=== PATIENT | female | born 1965 | race Hispanic/Latino ===

== ENCOUNTER 2020-06-24 07:58 | Day surgery (SDC) | payer OTHER ==
--- OUTSIDE RECORDS SUMMARY | 2020-06-24 08:02 | XMS REPORT | Continuity of Care Document ---
:1965 Author Organization [facility] t Address [address] [place] [address] Dr. [address] [place] [address] Care Team Providers Name Role Phone Unavailable Unavailable Unavailable Problems This patient has no known problems. Allergies, Adverse Reactions, Alerts This patient has no known allergies or adverse reactions. Medications This patient has no known medications. Procedures This patient has no known procedures. Encounters Start End Encounter Admission Attending Care Care Encounter Source Date/Time Date/Time Type Type Clinicians Facility Department ID 2020-05-25 2020-05-25 Outpatient [facility] [id number] [facility] 00:00:00 00:00:00 Alaina Edmondson ent Clinics Results This patient has no known results.
--- OUTSIDE RECORDS SUMMARY | 2020-06-24 08:02 | XMS REPORT ---
:1965 Author Organization [facility] Address [address] Galvan, Chris. 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 274760540 ALLERGIES No Known Allergies ENCOUNTERS from 1965 to 2020-05-25 Encounter Location Date Provider Diagnosis [place] [address] [place] May, Peewee Ayala HTN (hype rtension), Drive [address], [facility] [address] ; [place] [address] hernia without obstruction or gangrene K43.9 ; Mixed hyperlipidemia E78.2 ; Atrophy of vagi na N95.2 ; Morbid (sever e) obesity due to excess calories E66.01 ; GERD without esophag itis K21.9 ; Body ma ss index [BMI]40.0-44.9, adult Z68.41 and Rect us diastasis M62.0 8 IMMUNIZATIONS No Information SOCIAL HISTORY Tobacco Use: Social History Observation Description Date Details (start date - stop date) Former Smoker Sex Assigned At : Social History Observation Description Sex Assigned At Unknown PHQ9 Question Answer Notes Little interest or pleasure in doing things Several days Feeling down, depressed, or hopeless Several days Trouble falling or staying asleep or sleeping too much Sever al days Feeling tired or having little energy Not at all Poor appetite or overeating Not at all Feeling bad about yourself, or that you are a failure, or No t at all have let yourself or your family down Trouble concentrating on things, such as reading the Not at all newspaper or watching television Moving or speaking so slowly that other people could have No t at all noticed; or the opposite, being so fidgety or restless that you have been moving around a lot more than usual Total Score 3 Interpretation Minimal Depression Thoughts that you would be better off or of hurting Not at all yourself in some way Alcohol Screen Question Answer Notes Did you have a drink containing alcohol in the past year? No Points 0 Interpretation Negative Tobacco Use/Smoking Question Answer Notes Are you a former smoker REASON FOR REFERRAL No Information VITAL SIGNS Height 56 in May, Weight 194.8 lbs May, Temperature 97.2 degrees Fahrenheit May, BMI 43.67 kg/m2 May, Oximetry 97 % May, Respiratory Rate 17 /min May, Blood pressure systolic 138 mm Hg May, Blood pressure diastolic 70 mm Hg May, MEDICATIONS Medication SIG (Take, Route, Frequency, Start Date End Date Status Duration) Elderberry Active Pravastatin Sodium 40 MG 1 tablet Orally Once a day for Active 90 days Pantoprazole Sodium 40 MG 1 tablet Orally Once a day for Active 90 days Irbesartan 300 MG 1 tablet Orally Once a day for Active 90 days Equate Active Diltiazem HCl 90 MG 1 tablet Orally Twice a day for Active 90 days PROCEDURES No Information RESULTS No Results REASON FOR VISIT Nwpt est. care MEDICAL (GENERAL) HISTORY Type Description Date Surgical History Full hip replacement-Arthritis 2017 Surgical History C sections 1989,1985,1982 Goals Section No Information Health Concerns No Information MEDICAL EQUIPMENT No Information MENTAL STATUS No Information FUNCTIONAL STATUS No Information ASSESSMENTS Encounter Date Diagnosis Notes May, Mixed hyperlipidemia (ICD-10 - E78.2) May, Rectus diastasis (ICD-10 - M62.08) May, Ventral hernia without obstruction or ga ngrene (ICD-10 - K43.9) May, Body mass index [BMI]40.0-44.9, adult (I CD-10 - Z68.41) May, Atrophy of vagina (ICD-10 - N95.2) May, HTN (hypertension), benign (ICD-10 - I10 ) May, GERD without esophagitis (ICD-10 - K21.9 ) May, Morbid (severe) obesity due to excess ca lories (ICD-10 - E66.01) PLAN OF TREATMENT Medication Medication Name Sig Start Date Stop Date Diltiazem HCl 90 MG 1 tablet Orally Twice a day for 90 days Irbesartan 300 MG 1 tablet Orally Once a day for 90 days Pravastatin Sodium 40 MG 1 tablet Orally Once a day for 90 days Pantoprazole Sodium 40 MG 1 tablet Orally Once a day for 90 days Treatment Notes Assessment Notes Clinical Notes HTN (hypertension), benign Continue current regimen. Refill given. Encouraged to monitor at home and bring log. Side effect panel discussed., DASH Diet discussed. Instructed to measure BP at home and bring in log to f/u appt. Instructions and logs given. Education given. HTN Education This is a condition that puts at risk for heart attack, stroke, and kidney disease. Lifestyle modification, low fat/low salt diet, exercise, low alcohol intake and medication is utilized to help control your BP. Untreated HTN increases the strain on the heart and arteries, eventually causing organ damage.Normal BP is less than 140/90. High BP is greater than 140/90. If your BP is not controlled, call your doctor. Medication may need to be adjusted and/or added. Compliance with medication is vital. If you have chest pain, shortness of breath, severe nausea/vomiting, fatigue, and other symptoms, you will need to contact your doctor or go to the ER immediately to address. Ventral hernia without obstruction Discussed differential di agnosis or gangrene with patient. Education given. Referral to general surgeon for further evaluation and management. Imaging may be required. Concern for hernia versus rectus diastases or both. Defer to general surgeon. Avoid any exacerbating activity. Mixed hyperlipidemia . Continue current regimen. Education given. Side effect panel discussed, Hyperlipidemia Education: Hyperlipidemia refers to increased levels of lipids(fats) in the blood, including cholesterol and triglycerides. This can significantly increase your risk of developing coronary artery disease and peripheral artery disease. This can cause chest pain, heart attack, stroke, and fatigue. Treatment is recommended to decrease your risk. Treatment includes: lifestyle modification, low salt/low fat diet, exercise, tobacco cessation, low alcohol intake and sometimes medication. Blood tests (TC,TG, HDL, LDL) are utilized to determine treatment regimens. TC(Total cholesterol) should be below 200. TG(Total Triglycerides) should be below 150. HDL(Good cholesterol) should be above 40. LDL(Bad Cholesterol) should be below 130(if you have one risk factor) or less than 100( if you have more than one risk factor or have DM/CAD/PVD). Compliance with medication and treatment is vital. If you have questions, talk to your doctor. Atrophy of vagina . Managed by gynecology. Encourage on being compliant with medication. GERD without esophagitis . Discussed long-term impact of PPI usage. Education given. , We have discussed the pathophysiology of reflux disease and we discussed lifestyle modifications to avoid reflux that include elevation head of the bed, avoid alcohol, avoid caffeine, avoid maintenance, avoid tight clothing, avoid eating within 3-4 hours before bedtime, and avoiding smoking. Body mass index [BMI]40.0-44.9, Actively listened. Support rojelio hammonds. adult Counseling given. Education given. Utilized the 5-A''s approach to increase patient motivation and behavioral change. ASK: Patient expressed desire/readiness to change and permission was obtained to discuss. ASSESS: BMI class discussed. In addition, patient''s barrier to weight loss and identified drivers and complications. ADVISE: Discussed benefits of modest weight loss and long-term strategy as well. Educated on risks and complications of obesity on health. Treatment options were discussed including but not limited to non-surgical (medications, gym, diet/exercise) and surgical options. AGREE: Realistic weight-loss goal discussed. Behavioral goals done. Patient agreed with treatment plan. ASSIST: Provided education and resources. Plan made to address drivers and barriers. Close follow-up arranged. START: Walking daily, reducing soda and increased hydration with water of at least 64 ounces. Weight has been followed. At least 15 minutes were spent counseling. Next Appt Details 08/2020 [facility] Reason: Provider Name:Peewee Ayala, 2020-08-19 1 0:00:00 AM, [address], [address], [place], [address], Provider Name:Peewee Ayala, 2020-08-19 1 0:00:00 AM, [address], [address], [place], [address], Insurance Providers Payer Name Payer Payer Insured Patient Coverage Coverage End Address Phone Name Relationship to Start Date Mohsen e Insured Ambetter from [phone] Erik Levy self 2018 [place] [id number] y Health Plan [facility] [id number]
[2020-06-24] MEDS ORDERED: FENTANYL CITR 100 MCG/2 ML ONE (08:22)
[2020-06-24] MEDS ORDERED: LIDOCAINE 1% MPF 30 ML VIAL ONE (08:22)
[2020-06-24] MEDS ORDERED: propofoL 200 MG/20 ML VIAL IV ONE (08:22)
[2020-06-24] MEDS ORDERED: Ringers Lactate 1,000 ML IV ONE (08:26)
--- NOTE | 2020-06-24 09:25 | ENDO RPT ---
[address], [address] COLONOSCOPY PROCEDURE REPORT EXAM DATE: 06/24/2020 PATIENT NAME: Amisha Levy MR #: [id number] BIRTHDATE: 1965 ATTENDING: Nilo Walton DR STATUS: outpatient SECURITY SITE SUPERVISOR: Sergey Durham and Padmini Wallace RN INDICATIONS: The patient is a 55 yr old Female here for a colonoscopy due to colon cancer screening PROCEDURE PERFORMED: Colonoscopy and Screening Colonoscopy MEDICATIONS: Per Anesthesia. ESTIMATED BLOOD LOSS: None CONSENT: The patient understands the risks and benefits of the procedure and understands that these risks include, but are not limited to: sedation, allergic reaction, infection, perforation and/or bleeding. Alternative means of evaluation and treatment include, among others: physical exam, x-rays, and/or surgical intervention. The patient elects to proceed with this endoscopic procedure. DESCRIPTION OF PROCEDURE: During intra-op preparation period all mechanical medical equipment was checked for proper function. Hand hygiene and appropriate measures for infection prevention was taken. Procedure, possible complications, alternatives including, but not limited to possibility of bleeding, perforation, tear, infection, sepsis, need for surgery, need for blood transfusion, were explained to the patient. After the risks, benefits and alternatives of the procedure were thoroughly explained, Informed consent was verified, confirmed and timeout was successfully executed by the treatment team. The patient was placed in the left lateral position. A digital rectal exam was performed and revealed internal hemorrhoids. After appropriate level of anesthesia, the scope was passed. The EC-[id number] ([id number]) endoscope was introduced through the anus and advanced to the cecum, which was identified by both the appendix and ileocecal valve. The quality of the prep was fair. The instrument was then slowly withdrawn as the colon was fully examined. Scope withdrawal time was 9 minutes. COLON FINDINGS: Small internal hemorrhoids were found. The colon mucosa was otherwise normal. Retroflexed views revealed no abnormalities. The scope was then completely withdrawn from the patient and the procedure terminated. ADVERSE EVENTS: There were no complications. IMPRESSIONS: 1. Small internal hemorrhoids 2. The colon mucosa was otherwise normal RECOMMENDATIONS: 1. fiber rich diet 2. Monitor for any evidence of rectal bleeding. 3. hemorrhoidal hygiene 4. yearly hemoccult starting in 4 years RECALL: Return in 10 year(s) for Colonoscopy. Fecal FIT analysis in [address] eSigned: Nilo Waltno DR 06/24/2020 9:24 AM cc: CPT CODES: ICD9 CODES: PATIENT NAME: Cam Amisha LaXander MR#: [id number]
[2020-06-24 11:37] VITALS: BP 160/90; TEMP 97.2; O2SAT 97
== END 2020-06-24 09:56 | disposition home or self-care (01) ==
LOC: OR 07:58
PROVIDERS: ATTEND Surgery
PROC: 0DJD8ZZ Inspection of Lower Intestinal Tract, Via Natural or Artificial Opening Endoscopic (ICD-10-PCS; principal; 2020-06-24 09:00)
DX: Z12.11 Encounter for screening for malignant neoplasm of colon (principal); Z20.828 Contact with and (suspected) exposure to other viral communicable diseases; K64.9 Unspecified hemorrhoids; I10 Essential (primary) hypertension; K43.2 Incisional hernia without obstruction or gangrene
CPT/HCPCS: 45378; U0002; J2704; J7120; J3010

== ENCOUNTER 2020-07-17 08:15 | Day surgery (SDC) | payer OTHER ==
--- OUTSIDE RECORDS SUMMARY | 2020-07-17 08:21 | XMS REPORT | Continuity of Care Document ---
:1965 Author Organization [facility] t Address [address] [place] [address] Dr. Perez. [address] [place] [address] Care Team Providers Name Role Phone Unavailable [...] Clinicians Facility Department ID 2020-05-25 2020-05-25 [facility] [id number] [facility] 00:00:00 00:00:00 Alaina Edmondson ent Clinics Results This patient has no known results.
[2020-07-17] MEDS ORDERED: CEFAZOLIN/SWI 1gm 1 GM/10 ML SYR ONE (09:07)
[2020-07-17] MEDS ORDERED: Ringers Lactate 1,000 ML IV ONE (09:07)
[2020-07-17] MEDS ORDERED: BUPIVACA 0.5%/EPI 0.0005%/PF 30 ML VIAL ONE (09:11)
[2020-07-17] MEDS ORDERED: FENTANYL CITR 100 MCG/2 ML ONE (09:28)
[2020-07-17] MEDS ORDERED: MIDAZOLAM HCL 2 MG/2 ML INJ ONE (09:28)
[2020-07-17] MEDS ORDERED: propofoL 200 MG/20 ML VIAL IV ONE (09:28)
[2020-07-17] MEDS ORDERED: dexAMETHasone 10 MG/ML VIAL ONE (09:28)
[2020-07-17] MEDS ORDERED: LIDOCAINE 2% MPF 5 ML VIAL ONE (09:29)
[2020-07-17] MEDS ORDERED: KETOROLAC 30 MG/ML INJ ONE (09:29)
[2020-07-17] MEDS ORDERED: ROCURONIUM 50 MG/5 ML VIAL IV ONE (09:30)
[2020-07-17] MEDS ORDERED: ONDANSETRON 4 MG/2 ML VIAL ONE (09:30)
[2020-07-17] MEDS: Ringers Lactate 1,000 ML IV ONE ×2 (10:50→10:57)
--- NOTE | 2020-07-17 10:57 | P.OP ---
Preoperative diagnosis: Ventral Abdominal Hernia Postoperative diagnosis: Ventral Abdominal Hernia Primary procedure: Laparoscopic Ventral Abdominal Hernia repair with mesh Secondary procedure: Laparoscopic Adhesiolysis Anesthesia: GETA + Local Estimated blood loss: <5cc Specimen: None Findings: Supra umbilical ~4cm round hernia Complications: None Implants: Bard Ventralite ST Mesh with Echo Position 11.4cm round Transferred to: Recovery Room Condition: Good
[2020-07-17] MEDS ORDERED: GLYCOPYRROLATE 0.2 MG/ML SYR ONE (11:01)
[2020-07-17] MEDS ORDERED: NEOSTIGMINE 1 MG/ML -5 ML ONE (11:02)
[2020-07-17] MEDS: HYDROMORPHONE HCL 1 MG/ML INJ ONE ×2 (11:11→11:16)
[2020-07-17] MEDS: MEPERIDINE HCL 25 MG/ML SYR ONE ×2 (11:19→11:24)
[2020-07-17] MEDS ORDERED: HYDROMORPHONE HCL 1 MG/ML INJ ONE (11:45)
[2020-07-17] MEDS ORDERED: HYDROCODONE/APAP 7.5/325 MG TAB ONE (12:56)
[2020-07-17 13:39] VITALS: BP 126/77; TEMP 97; O2SAT 94
--- NOTE | 2020-07-17 22:44 | OP ---
Date of Procedure: 07/17/2020 Surgeon: Nilo Walton MD, Preoperative Diagnosis: Ventral abdominal hernia. Postoperative Diagnosis: Ventral abdominal hernia. Procedure Performed: 1.Laparoscopic ventral abdominal hernia repair with mesh. 2.Laparoscopic adhesiolysis. 3.Laparoscopic primary repair plus mesh. Anesthesia: General endotracheal plus local. Estimated Blood Loss: Less than 5 mL. Specimen: None. Findings: Supraumbilical hernia in the ventral abdominal wall approximately 4 cm round. Complications: None. Implants: Bard Ventralight ST mesh with Echo Positioning System 11.4 cm round. Disposition: The patient transferred to recovery room in good condition. Procedure In Detail: After informed consent was obtained, patient was brought to the operating room, prepped and draped in the usual sterile fashion. After adequate anesthesia was achieved, I anesthet ized an area of the left upper quadrant with 0.25% Marcaine with epinephrine. I made an incision for a 10 mm trocar. I then used a 5 mm 0-degree optical trocar and introduced in the abdomen without ev idence of complication, insufflation was obtained to 15 mmHg at this time. There was no injury to vi georgiana structures upon entry into the abdomen. An additional trocar was chosen in the left lower quadra nt. This was similarly anesthetized and sharply incised. A 5 mm trocar was introduced in the abdome n without evidence of complication. I then upsized the left upper quadrant trocar to a 12 mm under d irect visualization without evidence of complication. I then used a combination of blunt dissection with a LigaSure device to take down the adhesions and intraabdominal contents which were found to be omentum, the supraumbilical hernia defect which approximately 4 cm in size. After a significant amou nt of omentum was removed from this hernia defect, the hernia sac was grasped and dissected free from the abdominal wall and returned back to the normal anatomic position. At this point, I inspected th e abdominal wall. There was some diastasis, but the hernia was found to be approximately 4 cm in siz e in the supraumbilical position. At this point, I brought an Endo Stitch and using a 0 V-Loc suture , I closed the hernia defect in a running fashion with a running V-Loc stitch with good apposition of the tissues. At this point, I removed the V-Loc suture remnant and the tissue remained closed in go od apposition. At this point, I brought in the 11.[address] hernia mesh and positioned magdy ropriately in the overlying the mesh and centrally located over the hernia defect. Using a [facility] [employer] suture passer, I grasped, elevated, and deployed the balloon inflation system and then used an absorbable fixation tacks, SorbaFix to secure the crown. At this point, the balloon deployment syst em was then removed and put on the back table and ensured it was intact. I then did a double crown t ype closure to apply the mesh to the anterior abdominal wall using approximately 60 tacks. There was good apposition of the mesh to the anterior abdominal wall. The abdomen was then inspected. There were no hemostatic maneuvers. All tissue was found to be in good anatomic position. Incidentally, t he patient was noted to have steatotic appearing liver with fatty infiltration. I then positioned th e patient slightly to the left side up and removed the 12 mm trocar and using a [facility] sutur e passer, I closed the 12 mm trocar site using a 0 Vicryl in interrupted fashion using a [facility] suture passer with good apposition of the tissue. The abdomen was then completely desufflated un kandice direct visualization with the remaining trocar. All trocars were removed. All skin incisions we re copiously irrigated and closed with 4-0 Monocryl in a running fashion. Dermabond placed over top. Patient tolerated the procedure well without evidence of complication and transferred to PACU in good condition. All counts were correct at the end of the case. BRANDON/ANH Voice ID: [id number] Report ID: [id number]
== END 2020-07-17 13:30 | disposition home or self-care (01) ==
LOC: OR 08:15
PROVIDERS: ATTEND Surgery
PROC: 0WUF4JZ Supplement Abdominal Wall with Synthetic Substitute, Percutaneous Endoscopic Approach (ICD-10-PCS; principal; 2020-07-17 10:00)
DX: K43.9 Ventral hernia without obstruction or gangrene (principal); I10 Essential (primary) hypertension; K21.9 Gastro-esophageal reflux disease without esophagitis; Z23 Encounter for immunization; Z20.828 Contact with and (suspected) exposure to other viral communicable diseases
CPT/HCPCS: 49652; U0002; J2704; J2250; J3010; J1100; J2175; J1170 ×2; J2710; J0690; J7120 ×2; J2405; C1781

== ENCOUNTER 2020-08-21 18:02 | Emergency (ER) | payer OTHER ==
--- OUTSIDE RECORDS SUMMARY | 2020-08-21 18:04 | XMS REPORT | Continuity of Care Document ---
:1965 Author Organization [facility] t Address [address] [place] [address] Care Team Providers Name Role Phone Unavailable Unavailable Unavailable Problems This patient has no known problems. Allergies, Adverse Reactions, Alerts This patient has no known allergies or adverse reactions. Medications This patient has no known medications. Procedures This patient has no known procedures. Encounters Start End Encounter Admission Attending Care Care Encounter Source Date/Time Date/Time Type Type Clinicians Facility Department ID 2020-08-12 2020-08-12 Outpatient [facility] [id number] [facility] 00:[facility] 00:00:00 lAaina godinez [facility] ent Clinics 2020-05-25 2020-05-25 Outpatient [facility] [id number] [facility] 00:[facility] 00:00:00 [facility] ent Clinics Results This patient has no known results.
--- OUTSIDE RECORDS SUMMARY | 2020-08-21 18:05 | XMS REPORT ---
:1965 Author Organization [facility] Address [address] Galvan, Chris. 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 [address], [place] [address] IMMUNIZATIONS No Information SOCIAL HISTORY Tobacco Use: [...] REASON FOR REFERRAL No Information VITAL SIGNS No information MEDICATIONS Medication SIG (Take, Route, Notes Start Date End Date Status Frequency, Duration) Irbesartan 300 MG 1 tablet Orally Once a day Active for 90 days Equate Active Elderberry Active Pravastatin Sodium 40 MG 1 tablet Orally Once a day Active for 90 days Diltiazem HCl 90 MG 1 tablet Orally Twice a Active day for 90 days Pantoprazole Sodium 40 MG 1 tablet Orally Once a day Active for 90 days PROCEDURES No Information RESULTS No Results REASON FOR VISIT f/u call, FYI COVID + MEDICAL (GENERAL) HISTORY Type Description Date Surgical History Full hip replacement-Arthritis 2017 Surgical History C sections 1989,1985,1982 Goals Section No Information Health Concerns No Information MEDICAL EQUIPMENT No Information MENTAL STATUS No Information FUNCTIONAL STATUS No Information ASSESSMENTS No Information PLAN OF TREATMENT Medication Medication Name Sig Start Date Stop Date Irbesartan 300 MG 1 tablet Orally Once a day for 90 days Diltiazem HCl 90 MG 1 tablet Orally Twice a day for 90 days Pantoprazole Sodium 40 MG 1 tablet Orally Once a day for 90 days Pravastatin Sodium 40 MG 1 tablet Orally Once a day for 90 days Insurance Providers Payer Name Payer Payer Insured Patient Coverage Coverage End Address Phone Name Relationship to Start Date Mohsen e Insured Junetter from [phone] Erik Levy self 2018 [place] [id number] y A Health Plan [facility] [id number]
[2020-08-21 22:55] LABS: Absolute Lymphocytes (CBC) 1.8 K/uL (0.7-4.9); Basophils % 0.3 % (0-1.3); Hematocrit 39.6 % (36.0-45.0); Lymphocytes % 31.3 % (15.3-44.8); MPV 9.4 fL (7.6-11.3); RBC Red Blood Cell Count 4.66 M/uL (3.86-4.86)
[2020-08-21 22:58] LABS: Protime INR 1.01
[2020-08-21 23:20] LABS: ALT/SGPT 77 U/L (12-78); AST/SGOT 52 U/L (15-37); Albumin 3.9 g/dL (3.4-5.0); Alkaline Phosphatase 106 U/L (45-117); BUN Blood Urea Nitrogen 12 mg/dL (7-18); Bicarbonate 26 mmol/L (21-32); Bilirubin Direct 0.1 mg/dL (0-0.2); Bilirubin Total 0.4 mg/dL (0.2-1.0); Glucose Level 87 mg/dL (74-106); Magnesium 2.4 mg/dL (1.8-2.4); NT PRO-BNP 8 pg/mL (<125); Protein, Total 8.4 g/dL (6.4-8.2); Sodium Level 139 mmol/L (136-145); Troponin (Emerg Dept Use Only) < 0.02 ng/mL (0.0-0.045)
--- NOTE | 2020-08-22 02:09 | ER ---
Nurse's Notes [facility] Name: Amisha Levy Age: 55 yrs Sex: Female : 1965 Arrival Date: 08/21/2020 Time: 18:04 Bed 3 Private MD: Diagnosis: COVID Pneumonia Presentation: 08/21 18:32 Chief complaint: Patient states: Shortness of breath that began 3 days ago. COVID + ss 08/11. Coronavirus screen: Client presents with at least one sign or symptom that may indicate coronavirus-19. Standard/surgical mask placed on the client. Ebola Screen: Patient denies exposure to infectious person. Patient denies travel to an Ebola-affected area in the 21 days before illness onset. Initial Sepsis Screen: Does the patient meet any 2 criteria? No. Patient's initial sepsis screen is negative. Does the patient have a suspected source of infection? No. Patient's initial sepsis screen is negative. Risk Assessment: Do you want to hurt yourself or someone else? Patient reports no desire to harm self or others. Onset of symptoms was August 18, 2020. 18:32 Method Of Arrival: Ambulatory ss 18:32 Acuity: MARTHA 3 ss Triage Assessment: 22:54 General: Appears comfortable, Behavior is calm, cooperative. Respiratory: Reports rv shortness of breath at rest Onset: The symptoms/episode began/occurred gradually, the patient has mild shortness of breath. Historical: - Allergies: 18:34 No Known Allergies; ss - Immunization history:: Adult Immunizations up to date. - Social history:: Smoking status: Patient denies any tobacco usage or history of. Screenin:53 Abuse screen: Denies threats or abuse. Denies injuries from another. Nutritional rv screening: No deficits noted. Tuberculosis screening: No symptoms or risk factors identified. Fall Risk None identified. Assessment: 22:53 Pain: Complains of pain in chest. Neuro: Level of Consciousness is awake, alert, obeys rv commands, Oriented to person, place, time, situation. Cardiovascular: Patient's skin is warm and dry. Rhythm is sinus rhythm. Respiratory: Airway is patent Respiratory effort is even, unlabored, Breath sounds are clear bilaterally. Derm: Skin is intact. 23:50 Reassessment: patient updated on the test results and plan of care. for CT scan. rv Vital Signs: 18:32 BP 154 / 78; Pulse 81; Resp 18; Temp 99.5(TE); Pulse Ox 98% on R/A; Weight 87.09 kg; ss Height 4 ft. 7 in. (139.70 cm); Pain 0/10; 22:54 BP 141 / 76; Pulse 73; Resp 16; Pulse Ox 97% on R/A; rv 23:49 BP 139 / 75; Pulse 76; Resp 19; Pulse Ox 97% on R/A; rv 08/22 01:13 BP 145 / 85; Pulse 75; Resp 22; Pulse Ox 97% ; rv 02:20 BP 147 / 84; Pulse 73; Resp 18; Temp 98.7; Pulse Ox 96% ; rv 08/21 18:32 Body Mass Index 44.62 (87.09 kg, 139.70 cm) ss ED Course: 08/21 18:04 Patient arrived in ED. bp1 18:33 Triage completed. ss 18:34 Arm band placed on right wrist. ss 20:55 Jessica Seals FNP-C is PHCP. kb 20:55 Rajinder Munguia MD is Attending Physician. kb 21:17 Jessica Seals FNP-C is PHCP. kb 21:17 Rajinder Munguia MD is Attending Physician. kb 21:19 Patient's name was called from ER lobby. No response. lp1 21:23 Chest Pa And Lat (2 Views) In Process Unspecified. EDMS 22:06 Rajinder Munguia MD is Attending Physician. mh7 22:45 Inserted saline lock: 20 gauge in left antecubital area, using aseptic technique. Blood rv collected. 22:45 Initial lab(s) drawn, by wa, sent to lab. rv 22:52 Amaury Garner, RN is Primary Nurse. rv 22:54 Patient has correct armband on for positive identification. Bed in low position. Call rv light in reach. Side rails up X 1. teletypesetter monitor on. Pulse ox on. NIBP on. 08/22 00:19 CT Chest For PE Angio In Process Unspecified. EDMS 02:19 No provider procedures requiring assistance completed. IV discontinued, intact, rv bleeding controlled, No redness/swelling at site. Administered Medications: No medications were administered Outcome: 02:09 Discharge ordered by . 7 02:20 Discharged to home ambulatory. rv 02:20 Condition: good 02:20 Discharge instructions given to patient, Instructed on discharge instructions, follow up and referral plans. medication usage, Demonstrated understanding of instructions, follow-up care, medications, Prescriptions given X 1. 02:20 Patient left the ED. rv Signatures: Dispatcher [employer] [facility] Jessica Seals, PRINTED CIRCUIT BOARDS PINNER-C PRINTED CIRCUIT BOARDS PINNER-Misty Naylor RN RN Saloni Vazquez RN RN 1 Amaury Garner RN RN rv Dinorah Ceballos Maurice, MD MD mh7
--- NOTE | 2020-08-22 02:09 | EDPHYS ---
Physician Documentation [facility] Name: Amisha Levy Age: 55 yrs Sex: Female : 1965 Arrival Date: 08/21/2020 Time: 18:04 Bed 3 Private MD: ED Physician Rajinder Munguia HPI: 08/21 22:30 This 55 yrs old Female presents to ER via Ambulatory with complaints of mh7 Shortness Of Breath, Chest Tightness, Covid+. 22:30 The patient has shortness of breath When taking deep breath. Onset: The mh7 symptoms/episode began/occurred 3 day(s) ago. Duration: The symptoms are intermittent, with no pattern. The patient's shortness of breath is aggravated by coughing, is alleviated by nothing. Associated signs and symptoms: Pertinent positives: chest pain, non-productive cough, Pertinent negatives: productive cough, diaphoresis, dizziness, fever, hemoptysis, loss of consciousness, nausea, numbness in extremities, visual changes, vomiting. Severity of symptoms: At their worst the symptoms were moderate 3 day(s) ago, in the emergency department the symptoms have improved moderately. Tested positive for COVID on 08/11/2020. Historical: - Allergies: 18:34 No Known Allergies; ss - Immunization history:: Adult Immunizations up to date. - Social history:: Smoking status: Patient denies any tobacco usage or history of. ROS: 22:30 Constitutional: Negative for fever, chills, and weight loss, Eyes: Negative for injury, mh7 pain, redness, and discharge, ENT: Negative for injury, pain, and discharge, Neck: Negative for injury, pain, and swelling, Abdomen/GI: Negative for abdominal pain, nausea, vomiting, diarrhea, and constipation, Back: Negative for injury and pain, : Negative for injury, bleeding, discharge, and swelling, MS/Extremity: Negative for injury and deformity, Skin: Negative for injury, rash, and discoloration, Neuro: Negative for headache, weakness, numbness, tingling, and seizure, Psych: Negative for depression, anxiety, suicide ideation, homicidal ideation, and hallucinations, Allergy/Immunology: Negative for hives, rash, and allergies, Endocrine: Negative for neck swelling, polydipsia, polyuria, polyphagia, and marked weight changes, Hematologic/Lymphatic: Negative for swollen nodes, abnormal bleeding, and unusual bruising. Exam: 22:30 Constitutional: This is a well developed, well nourished patient who is awake, alert, mh7 and in no acute distress. Head/Face: Normocephalic, atraumatic. Eyes: Pupils equal round and reactive to light, extra-ocular motions intact. Lids and lashes normal. Conjunctiva and sclera are non-icteric and not injected. Cornea within normal limits. Periorbital areas with no swelling, redness, or edema. Neck: Trachea midline, no thyromegaly or masses palpated, and no cervical lymphadenopathy. Supple, full range of motion without nuchal rigidity, or vertebral point tenderness. No Meningismus. Chest/axilla: Normal chest wall appearance and motion. Nontender with no deformity. No lesions are appreciated. Cardiovascular: Regular rate and rhythm with a normal S1 and S2. No gallops, murmurs, or rubs. Normal PMI, no JVD. No pulse deficits. Respiratory: Lungs have equal breath sounds bilaterally, clear to auscultation and percussion. No rales, rhonchi or wheezes noted. No increased work of breathing, no retractions or nasal flaring. Abdomen/GI: Soft, non-tender, with normal bowel sounds. No distension or tympany. No guarding or rebound. No evidence of tenderness throughout. Back: No spinal tenderness. No costovertebral tenderness. Full range of motion. Skin: Warm, dry with normal turgor. Normal color with no rashes, no lesions, and no evidence of cellulitis. MS/ Extremity: Pulses equal, no cyanosis. Neurovascular intact. Full, normal range of motion. Neuro: Awake and alert, GCS 15, oriented to person, place, time, and situation. Cranial nerves II-XII grossly intact. Motor strength 5/5 in all extremities. Sensory grossly intact. Cerebellar exam normal. Normal gait. Psych: Awake, alert, with orientation to person, place and time. Behavior, mood, and affect are within normal limits. Vital Signs: 18:32 BP 154 / 78; Pulse 81; Resp 18; Temp 99.5(TE); Pulse Ox 98% on R/A; Weight 87.09 kg; ss Height 4 ft. 7 in. (139.70 cm); Pain 0/10; 22:54 BP 141 / 76; Pulse 73; Resp 16; Pulse Ox 97% on R/A; rv 23:49 BP 139 / 75; Pulse 76; Resp 19; Pulse Ox 97% on R/A; rv 08/22 01:13 BP 145 / 85; Pulse 75; Resp 22; Pulse Ox 97% ; rv 02:20 BP 147 / 84; Pulse 73; Resp 18; Temp 98.7; Pulse Ox 96% ; rv 08/21 18:32 Body Mass Index 44.62 (87.09 kg, 139.70 cm) ss MDM: 08/21 21:17 Patient medically screened. kb 08/22 02:07 Differential diagnosis: Anemia Anxiety Reaction asthma, Bronchitis CHF exacerbation, 7 Chronic Obstructive Pulmonary Disease Myocardial Infarction pneumonia, pulmonary edema, Pulmonary Embolism. Data reviewed: vital signs, nurses notes, lab test result(s), cardiac enzymes, CBC, electrolytes, urinalysis, EKG, radiologic studies, CT scan, plain films. Data interpreted: Pulse oximetry: on room air is 97 %. Interpretation: normal. Counseling: I had a detailed discussion with the patient and/or guardian regarding: the historical points, exam findings, and any diagnostic results supporting the discharge/admit diagnosis, the presence of at least one elevated blood pressure reading (>120/80) during this emergency department visit, lab results, radiology results, the need for outpatient follow up, to return to the emergency department if symptoms worsen or persist or if there are any questions or concerns that arise at home. Response to treatment: the patient's symptoms have resolved after treatment, the patient's blood pressure is in an acceptable range, mental status has returned to baseline, the patient no longer shows bradycardia, the patient is not short of breath, the patient is not tachycardic, the patient's pain is gone, the patient's temperature has normalized, the patient is now symptom free, patient is well hydrated. 02:09 Patient medically screened. [facility] 08/21 22:30 Order name: Basic Metabolic Panel [facility] 08/21 22:30 Order name: CBC with Diff [facility] 08/21 22:30 Order name: LFT's; Complete Time: 23:39 [facility] 08/21 22:30 Order name: Magnesium; Complete Time: 23:39 [facility] 08/21 22:30 Order name: NT PRO-BNP; Complete Time: 23:39 [facility] 08/21 22:30 Order name: PT-INR; Complete Time: 23:13 [facility] 08/21 21:19 Order name: Chest Pa And Lat (2 Views) [facility] 08/21 22:30 Order name: Troponin (emerg Dept Use Only); Complete Time: 23:39 [facility] 08/21 22:31 Order name: Basic Metabolic Panel; Complete Time: 23:39 [facility] 08/21 22:31 Order name: CBC with Automated Diff; Complete Time: 22:57 [facility] 08/21 23:40 Order name: CT Chest For PE Angio [facility] 08/22 00:58 Order name: Troponin (emerg Dept Use Only); Complete Time: 02:03 lp1 08/21 22:30 Order name: EKG; Complete Time: 22:31 [facility] 08/21 22:30 Order name: Cardiac monitoring; Complete Time: 22:55 [facility] 08/21 22:30 Order name: EKG - Nurse/Tech; Complete Time: 22:54 [facility] 08/21 22:30 Order name: IV Saline Lock; Complete Time: 22:54 [facility] 08/21 22:30 Order name: Labs collected and sent; Complete Time: 22:55 [facility] 08/21 22:30 Order name: O2 Per Protocol; Complete Time: 22:55 [facility] 08/21 22:30 Order name: O2 Sat Monitoring; Complete Time: 22:55 mh7 Administered Medications: No medications were administered Disposition: 08/22/20 02:09 Discharged to Home. Impression: COVID Pneumonia. - Condition is Stable. - Discharge Instructions: Viral Respiratory Infection, [id number], COVID-19. - Prescriptions for Albuterol Sulfate 90 mcg/actuation - inhale 1-2 puff by INHALATION route every 4-6 hours; 1 Inhaler. - Medication Reconciliation Form, Thank You Letter, Antibiotic Education, Prescription Opioid Use form. - Follow up: Private Physician; When: 1 - 2 days; Reason: Worsening of condition, Recheck today's complaints, Continuance of care, Re-evaluation by your physician. - Problem is an ongoing problem. - Symptoms have improved. Signatures: Dispatcher [employer] [facility] Jessica Seals FNP-C FNP-Misty Naylor RN RN ss Amaury Garner RN RN rv Rajinder Munguia MD MD mh7 Corrections: (The following items were deleted from the chart) 08/21 21:19 20:55 Chest Single View+RAD.RAD.BRZ ordered. EDGA EDMS 22:49 22:31 Chest Single View+RAD.RAD.BRZ ordered. EDGA EDGA 08/22 02:20 02:09 08/22/2020 02:09 Discharged to Home. Impression: COVID Pneumonia. Condition is rv Stable. Forms are Medication Reconciliation Form, Thank You Letter, Antibiotic Education, Prescription Opioid Use. Follow up: Private Physician; When: 1 - 2 days; Reason: Worsening of condition, Recheck today's complaints, Continuance of care, Re-evaluation by your physician. Problem is an ongoing problem. Symptoms have improved. mh7
[2020-08-22 03:12] VITALS: BP 147/84; TEMP 98.7; O2SAT 96
--- NOTE | 2020-08-22 09:09 | RAD REPORT ---
EXAM DESCRIPTION: RAD - Chest Pa And Lat (2 Views) - 08/21/2020 9:26 pm CLINICAL HISTORY: DYSPNEA, COVID positive August 11 COMPARISON: None TECHNIQUE: Frontal and lateral views of the chest were obtained. FINDINGS: The lungs are slightly under inflated. No dense consolidation identified. Scattered calcif ied granulomas are seen. Heart size and vasculature are within normal limits. Hazy airspace opacific ation is present. Heart size is normal and central vasculature is within normal limits. No pleural e ffusion or pneumothorax seen. No acute bony finding noted. No aortic abnormality. IMPRESSION: Increased interstitial opacification and scattered hazy airspace disease seen. Findings are consistent with a minimal COVID-19 pneumonia.
--- NOTE | 2020-08-22 13:27 | RAD REPORT ---
EXAM DESCRIPTION: CT - Chest For Pe Angio - 08/22/2020 6:51 am CLINICAL HISTORY: SOB COMPARISON: None Available. TECHNIQUE: CTA of the chest obtained following the uncomplicated intravenous administration of . 3-D /MIP reformatted images of the chest available for evaluation. FINDINGS: Chest: Pulmonary arteries: Contrast bolus is adequate.No filling defects identified in the pulmonary arterie s to suggest pulmonary embolus. Thyroid: No abnormalities of the visualized thyroid. Great Vessels: Great vessels have normal anatomic configuration. Thoracic Aorta: No abnormalities of the thoracic aorta identified. Heart: No cardiomegaly, significant pericardial effusion, or coronary artery atherosclerosis Lymph Nodes: No enlarged mediastinal lymph nodes identified. Esophagus: No abnormalities of the esophagus identified. Other: No additional findings. Lungs: Bilateral calcified granulomas. Mild multifocal bilateral peripheral groundglass opacities. Mi nimal bibasilar dependent atelectasis. Pleura: No pleural effusion or pneumothorax. Trachea/Airways: No abnormalities of the visualized trachea or airways. Bones: Mild degenerative endplate spondylosis. Upper Abdomen: Limited images of the upper abdomen demonstrate no definite acute abnormalities. Diffu sely decreased density of the visualized liver. IMPRESSION: 1. No pulmonary embolus. 2. Mild multifocal bilateral groundglass opacities. Commonly reported imaging features of viral pne umonia are present. Other processes such as influenza pneumonia and organizing pneumonia, as can be s een with drug toxicity and connective tissue disease, can cause a similar imaging pattern. PneTyp Reference: https://pubs.rsna.org/doi/full/10.1148/ryct.1942007520 3. Hepatic steatosis. This exam was performed according to our departmental dose-optimization program, which includes autom ated exposure control, adjustment of the mA and/or kV according to patient size and/or use of iterati ve reconstruction technique. Electronically signed by: Kenny Singleton 08/22/2020 12:28 AM [employer] Due to temporary technical issues with the PACS/Fluency reporting system, reports are being signed by the in house radiologists without review as a courtesy to insure prompt reporting. The interpreting radiologist is fully responsible for the content of the report.
--- NOTE | 2020-08-23 07:28 | EKG ---
Test Date: 2020-08-21 Test Time: 22:48:10 Yarn Wrapper: RV MEASUREMENT RESULTS: Intervals: Rate: 73 ID: [id number] QRSD: 94 QT: 392 QTc: 431 [place]: P: 10 ID: [id number] QRS: -3 T: 14 INTERPRETIVE STATEMENTS: Normal sinus rhythm Nonspecific T wave abnormality Abnormal ECG No previous ECG available for comparison Electronically Signed On 08-23-20 07:24:21 PRINCIPAL TRAINER by Jermaine Awad
== END 2020-08-22 02:20 | disposition home or self-care (01) ==
LOC: ER 18:02
DX: U07.1 COVID-19 (principal); J12.82 Pneumonia due to coronavirus disease 2019
CPT/HCPCS: 93005; 85025; 80048; 36415; 83735; 85610; 80076; 84484 ×2; 83880; 71275; 71046; 99284; Q9967